=== PATIENT | male | born 2000 | race Caucasian/White ===

== ENCOUNTER 2022-09-27 19:40 | Emergency (ER) | payer BC ==
[~2022-09-27] VITALS: Ht 182.9 cm; Wt 97.5 kg
[2022-09-27] MEDS ORDERED: IBUPROFEN 800 MG (MOTRIN) TAB PO ONE (20:15)
--- NOTE | 2022-09-27 20:50 | Diagnostic Imaging Report ---
EXAM: Shoulder, right, 3 views INDICATION: Right shoulder pain. Trauma. COMPARISON: None. FINDINGS: No fracture or malalignment. Soft tissue shadows are unremarkable. IMPRESSION: Negative right shoulder radiographs. Dictated by: Dictated on workstation # [id number]
--- NOTE | 2022-09-27 20:54 | ED Upper Extremity ---
General Chief Complaint: Upper Extremity Stated Complaint: RIGHT SHOULDER INJURY Nursing Triage Note: c/o right lateral shoulder pain. reports being hit in shoulder while playing basketball and hearing/feeling a "crunch" with intermittant right arm numbness since 1930. Source: patient Exam Limitations: no limitations History of Present Illness Date Seen by Provider: Sep 27, 2022 Time Seen by Provider: 20:40 Initial Comments 22-year-old male presents to the ED after injuring his right shoulder playing basketball. States that he ran into another player and felt a crunch in the shoulder, then he was unable to move his arm for about 5 minutes. Stated he then began to play again and the same thing occurred. He reports some mild numbness with the pain. Reports the pain is located on the top of his shoulder. He has full range of motion at this time, just complaining of some mild pain. Past medical history includes seasonal allergies which he currently takes an allergy medicine for. He also is currently being treated for bronchitis with a steroid and inhaler. Pain/Injury Location: right shoulder Method of Injury: sports injury Allergies and Home Medications Allergies Coded Allergies: clindamycin (Verified Allergy, Unknown, 09/27/22) latex (Verified Allergy, Unknown, 09/27/22) Patient Home Medication List Home Medication List Reviewed: Yes No Active Prescriptions or Reported Meds Review of Systems Constitutional: no symptoms reported Respiratory: cough Cardiovascular: no symptoms reported Musculoskeletal: other (Shoulder pain) Past Ewzgniv-Evbdok-Arfaor Hx Patient Social History Tobacco Use?: No Substance use?: No Alcohol Use?: No Pt feels they are or have been: No Immunizations Up To Date First/Initial COVID19 Vaccinat: x2 Past Medical History Surgery/Hospitalization HX: dental Physical Exam Vital Signs Vital Signs - First Documented 09/27/22 19:56 Temp 36.6 Pulse 95 Resp 16 B/P (MAP) 119/75 (90) Pulse Ox 97 O2 Delivery Room Air Capillary Refill : Less Than 3 Seconds Height, Weight, BMI Height: '" Weight: lbs. oz. kg; 29.00 BMI Method: General Appearance: WD/WN, no apparent distress Neck: supple, normal inspection Cardiovascular: regular rate, rhythm, no edema, no gallop, no JVD, no murmur Respiratory: lungs clear, normal breath sounds, no respiratory distress, no accessory muscle use Shoulder: normal inspection, non-tender, no evidence of injury, normal ROM Neurologic/Psychiatric: alert, normal mood/affect Skin: normal color, warm/dry Progress/Results/Core Measures Results/Orders My Orders Orders - HUI WOMACK APRN Shoulder, Right, 3 Views (09/27/22 20:12) Ibuprofen Tablet (Motrin Tablet) (09/27/22 20:15) Vital Signs/I&O 09/27/22 19:56 Temp 36.6 Pulse 95 Resp 16 B/P (MAP) 119/75 (90) Pulse Ox 97 O2 Delivery Room Air Blood Pressure Mean: 90 Progress Progress Note #1: Time: 20:53 Progress Note Patient seen and evaluated, resting comfortably in recliner, no acute distress. Based on exam and symptoms, concern for rotator cuff injury. X-ray of the right shoulder ordered, unlikely to be fractured or dislocated. Will discharge with follow-up with primary care provider, will also give contact information orthopedics. Progress Note #2: Time: 21:04 Progress Note X-ray reviewed. No acute abnormality. Results reviewed with patient. Discharge instructions and return precautions provided. Diagnostic Imaging Diagonstic Imaging: Xray Plain Films/CT/US/NM/MRI: other (Shoulder) Comments [facility], [place] NAME: MAKAYLA VELASQUEZ [facility] REC#: [id number] PT STATUS: REG ER : 2000 PHYSICIAN: HUI WOMACK APRN ADMIT DATE: 09/27/22/ER Draft Date of Exam:09/27/22 SHOULDER, RIGHT, 3 VIEWS EXAM: Shoulder, right, 3 views INDICATION: Right shoulder pain. Trauma. COMPARISON: None. FINDINGS: No fracture or malalignment. Soft tissue shadows are unremarkable. IMPRESSION: Negative right shoulder radiographs. Dictated on workstation # [id number] Dict: 09/27/222047 Trans: 09/27/222048 [facility] [id number] Interpreted by: GARDENIA ESPANA MD Electronically signed by: Departure Impression Primary Impression: Shoulder injury Disposition: 01 HOME, SELF-CARE Condition: Stable Departure-Patient Inst. Decision time for Depature: 21:06 Referrals: NO,LOCAL PHYSICIAN (PCP/Family) Primary Care Physician Patient Instructions: Rotator Cuff Injury, Shoulder Sprain (DC) Add. Discharge Instructions: Take 800 mg ibuprofen every 8 hours with food as needed for pain. Use ice packs for 20 minutes at a time several times a day for the next couple days. Avoid activities that aggravate the pain for the next couple of days. Slowly continue to reuse shoulder as pain improves to prevent frozen shoulder. Follow-up with primary care provider if you continue to have pain. Return for uncontrolled pain, inability to move arm, any other new, concerning, or worsening symptoms. All discharge instructions reviewed with patient and/or family. Voiced understanding. Scripts No Active Prescriptions or Reported Meds HUI WOMACK APRN Sep 27, 2022 20:54
[2022-09-27 21:14] VITALS: BP 115/72
== END 2022-09-27 21:14 | disposition home or self-care (01) ==
LOC: ER 19:43
DX: S49.91XA Unspecified injury of right shoulder and upper arm, initial encounter (principal); J40 Bronchitis, not specified as acute or chronic; J30.2 Other seasonal allergic rhinitis; Z91.040 Latex allergy status; W21.05XA Struck by basketball, initial encounter; Y93.67 Activity, basketball; Y92.310 Basketball court as the place of occurrence of the external cause
CPT/HCPCS: 73030